=== PATIENT | male | born 1990 | race African-American/Black ===

== ENCOUNTER 2023-05-10 09:53 | Emergency (ER) | payer OTHER ==
[~2023-05-10] VITALS: Ht 167.6 cm; Wt 62.6 kg
[2023-05-10 10:10] VITALS: BP 129/72; TEMP 98.7; O2SAT 100
[2023-05-10 10:40] LABS: SITE, VBG Other; VBG BASE EXCESS 2.2 mmol/L (-3-3); VBG COHb 1.6 %; VBG MetHb 0.4 %; VBG O2Hb 39.3 %; VBG OXYGEN SATURATION 40.1 %; VBG PCO2 31.2 mmHg (40-52); VBG PH 7.509 (7.31-7.41); VBG PO2 19.1 mmHg (30-50); VBG TOTAL HEMOGLOBIN 15.8 G/dL (13.5-18.0); VENT MODE, VBG RA 21%
[2023-05-10] MEDS ORDERED: ONDANSETRON HCL/PF 4 MG/2 ML VIAL ONE (10:40)
[2023-05-10] MEDS ORDERED: FAMOTIDINE/PF INJ 20 MG/2 ML VIAL IV ONE (10:40)
[2023-05-10] MEDS: FAMOTIDINE/PF INJ 20 MG/2 ML VIAL IV ONE (10:53)
[2023-05-10] MEDS: ONDANSETRON HCL/PF 4 MG/2 ML VIAL IVP ONE (10:53)
[2023-05-10] MEDS: IV NS 0.9% 1,000 ML BAG IV ONE (10:54)
== END 2023-05-10 11:33 | disposition left against medical advice (07) ==
LOC: ER 09:55 → EDBD 09:55 → ER 11:33
DX: R11.2 Nausea with vomiting, unspecified (principal); R94.31 Abnormal electrocardiogram [ECG] [EKG]; E11.9 Type 2 diabetes mellitus without complications; J45.909 Unspecified asthma, uncomplicated
CPT/HCPCS: 99284; 96374; 96375; 93005 ×2; 82803 ×2; 82962; 36600; J3490; J2405; J7030